=== PATIENT | male | born 1990 | race Caucasian/White ===

== ENCOUNTER 2020-01-03 16:50 | Inpatient (IN) | payer SELFPAY ==
[2020-01-03] MEDS ORDERED: Lactated Ringers 1,000 ML IV ONE ×2 (17:19→19:32)
[2020-01-03] MEDS ORDERED: Metoclopramide 10 MG/2 ML SDV IVPUSH ONE (17:20)
[2020-01-03] MEDS ORDERED: HYDROmorphone 0.5 MG/0.5 ML Syringe IVPUSH ONE ×2 (17:20→17:49)
--- NOTE | 2020-01-03 17:25 | EDM.PDOC ---
<Clinton Ledezma G - Last Filed: 01/03/20 17:49> ED HPI GENERAL MEDICAL PROBLEM - General Chief Complaint: Abdominal Pain Stated Complaint: RT SIDE ABD PAIN Time Seen by Provider: 01/03/20 17:10 Source of Information: Reports: Patient, RN History Limitations: Reports: No Limitations - History of Present Illness INITIAL COMMENTS - FREE TEXT/NARRATIVE: 29 yo male with no hx of prior abdominal surgeries presents with RLQ abdominal pain that has progressed since beginning early this morning. He has had no appetite and has not eaten. Anything he does makes the pain worse. He has nausea without vomiting. No change in his bowels. No fever. No urinary sx's. Onset: Today Onset Date: 01/03/20 Onset Time: 08:00 Duration: Hour(s):, Getting Worse Location: Reports: Abdomen (RLQ) Quality: Reports: Ache Severity: Moderate Improves with: Reports: None Worsens with: Reports: Other (pressing on area. ), Movement Context: Reports: Other (see HPI) Associated Symptoms: Reports: Loss of Appetite, Nausea/Vomiting (no vomiting). Denies: Cough, Fever/Chills Treatments MANAGER INTEL: Reports: Other (see below) (none) - Related Data Allergies Allergy/AdvReac Type Severity Reaction Status Date / Time No Known Allergies Allergy Verified 01/03/20 17:30 Home Meds: Home Meds NK [No Known Home Meds] 01/03/20 [History] Past Medical History - Past Health History Medical/Surgical History: Denies Medical/Surgical History Social & Family History - Tobacco Use Smoking Status *Q: Current Every Day Smoker Years of Tobacco use: 15 Packs/Tins Daily: 1 - Alcohol Use Days Per Week of Alcohol Use: 2 Number of Drinks Per Day: 1 Total Drinks Per Week: 2 - Recreational Drug Use Recreational Drug Use: No ED ROS GENERAL - Review of Systems Review Of Systems: See Below Constitutional: Reports: Decreased Appetite. Denies: Fever HEENT: Reports: No Symptoms Respiratory: Reports: No Symptoms Cardiovascular: Reports: No Symptoms GI/Abdominal: Reports: Abdominal Pain (RLQ), Anorexia, Decreased Appetite, Nausea. Denies: Black Stool, Bloody Stool, Constipation, Diarrhea, Distension, Flatus, Melena, Vomiting : Reports: No Symptoms Musculoskeletal: Reports: No Symptoms Skin: Reports: No Symptoms Neurological: Reports: No Symptoms Psychiatric: Reports: No Symptoms ED EXAM, GI/ABD - Physical Exam Exam: See Below Exam Limited By: No Limitations General Appearance: Alert, WD/WN, No Apparent Distress Eyes: Bilateral: Normal Appearance Ears: Normal External Exam, Normal Canal, Hearing Grossly Normal, Normal TMs Nose: Normal Inspection, No Blood Throat/Mouth: Normal Inspection, Normal Lips, Normal Oropharynx, Normal Voice, No Airway Compromise Head: Atraumatic, Normocephalic Neck: Normal Inspection Respiratory/Chest: No Respiratory Distress, Lungs Clear, Normal Breath Sounds, No Accessory Muscle Use Cardiovascular: Regular Rate, Rhythm, No Edema GI/Abdominal Exam: Soft, No Distention, Guarding, Tender (RLQ), Abnormal Bowel Sounds (decreased). No: Normal Bowel Sounds, Non-Tender, Distended, Rigid, Rebound Back Exam: Normal Inspection. No: CVA Tenderness (R), CVA Tenderness (L) Extremities: Normal Inspection, Normal Range of Motion, Non-Tender, No Pedal Edema Neurological: Alert, Oriented, CN II-XII Intact, Normal Cognition, No Motor/ Sensory Deficits Psychiatric: Normal Affect, Normal Mood Skin Exam: Warm, Dry, Intact, Normal Color, No Rash Course - Vital Signs Last Recorded V/S: Last Vital Signs Temp 97.5 F 01/03/20 18:26 Pulse 55 L 01/03/20 18:26 Resp 14 01/03/20 18:26 BP 136/71 01/03/20 18:26 Pulse Ox 95 01/03/20 18:26 - Orders/Labs/Meds Orders: Active Orders 24 hr Category Date Time Status Iopamidol [Isovue-300 (61%)] Med 01/03/20 18:00 Active 100 ml IV . DIRECTED PRN Lactated Ringers [Ringers, Lactated] 1,000 ml Med 01/03/20 19:32 Ordered IV BOLUS Sodium Chloride 0.9% [Normal Saline] 80 ml Med 01/03/20 18:00 Active IV ASDIRECTED Sodium Chloride 0.9% [Saline Flush] Med 01/03/20 18:00 Active 10 ml FLUSH ONETIME Medication Orders Sodium Chloride (Normal Saline) 80 mls @ 3.5 mls/sec IV ASDIRECTED SUSANNA Last Admin: 01/03/20 18:10 Dose: 3.5 mls/sec Lactated Ringer's (Ringers, Lactated) 1,000 mls @ 125 mls/hr IV BOLUS ONE Stop: 01/04/20 03:31 Iopamidol (Isovue-300 (61%)) 100 ml IV . DIRECTED PRN PRN Reason: RADIOLOGY EXAM Stop: 01/04/20 18:01 Last Admin: 01/03/20 18:10 Dose: 100 ml Sodium Chloride (Saline Flush) 10 ml FLUSH ONETIME SUSANNA Last Admin: 01/03/20 18:10 Dose: 10 ml Labs: Laboratory Tests 01/03/20 01/03/20 01/03/20 Range/Units 17:30 17:30 19:24 WBC 16.9 H (4.5-11.0) K/uL RBC 5.46 (4.30-5.90) M/uL Hgb 15.8 H (12.0-15.0) g/dL Hct 47.4 (40.0-54.0) % MCV 87 (80-98) fL MCH 29 (27-31) pg MCHC 33 (32-36) % Plt Count 297 (150-400) K/uL Sodium 138 L (140-148) mmol/L Potassium 4.5 (3.6-5.2) mmol/L Chloride 102 (100-108) mmol/L Carbon Dioxide 27 (21-32) mmol/L Anion Gap 13.5 (5.0-14.0) mmol/L BUN 15 (7-18) mg/dL Creatinine 1.2 (0.8-1.3) mg/dL Est Cr Clr Drug Dosing 97.90 mL/min Estimated GFR (MDRD) > 60 (>60) Glucose 107 H (74-106) mg/dL Calcium 9.2 (8.5-10.1) mg/dL Urine Color Yellow (YELLOW) Urine Appearance Clear (CLEAR) Urine pH 5.5 (5.0-8.0) Ur Specific [place] 1.015 (1.008-1.030) Urine Protein Negative (NEGATIVE) mg/dL Urine Glucose (UA) Negative (NEGATIVE) mg/dL Urine Ketones Negative (NEGATIVE) mg/dL Urine Occult Blood Negative (NEGATIVE) Urine Nitrite Negative (NEGATIVE) Urine Bilirubin Negative (NEGATIVE) Urine Urobilinogen 0.2 (0.2-1.0) EU/dL Ur Leukocyte Esterase Negative (NEGATIVE) Urine RBC 0-5 (0-5) Urine WBC 0-5 (0-5) Ur Epithelial Cells Not seen Amorphous Sediment Not seen Urine Bacteria Not seen Urine Mucus Not seen Meds: Medications Generic Name Dose Route Start Last Admin Trade Name Freq PRN Reason Stop Dose Admin Sodium Chloride 80 mls @ 3.5 mls/sec 01/03/20 18:00 01/03/20 18:10 Normal Saline IV 3.5 mls/sec ASDIRECTED SUSANNA Administration Lactated Ringer's 1,000 mls @ 125 mls/hr 01/03/20 19:32 Ringers, Lactated IV 01/04/20 03:31 BOLUS ONE Iopamidol 100 ml 01/03/20 18:00 01/03/20 18:10 Isovue-300 (61%) IV 01/04/20 18:01 100 ml . DIRECTED PRN Administration RADIOLOGY EXAM Sodium Chloride 10 ml 01/03/20 18:00 01/03/20 18:10 Saline Flush FLUSH 10 ml ONETIME SUSANNA Administration Discontinued Medications Generic Name Dose Route Start Last Admin Trade Name Oneilq PRN Reason Stop Dose Admin Hydromorphone HCl 0.5 mg 01/03/20 17:20 01/03/20 17:34 Dilaudid IVPUSH 01/03/20 17:21 0.5 mg ONETIME ONE Administration Hydromorphone HCl 0.5 mg 01/03/20 17:49 01/03/20 18:21 Dilaudid IVPUSH 01/03/20 17:50 0.5 mg ONETIME ONE Administration Lactated Ringer's 1,000 mls @ 500 mls/hr 01/03/20 17:19 01/03/20 17:34 Ringers, Lactated IV 01/03/20 19:18 500 mls/hr BOLUS ONE Administration Metoclopramide HCl 5 mg 01/03/20 17:20 01/03/20 17:39 Reglan IVPUSH 01/03/20 17:21 5 mg ONETIME ONE Administration Departure - Departure Disposition: Admitted As Inpatient 64 Clinical Impression: Appendicitis Qualifiers: Appendicitis type: acute appendicitis Acute appendicitis type: with localized peritonitis Appendicitis gangrene presence: without gangrene Appendicitis perforation presence: without perforation Appendicitis abscess presence: without abscess Qualified Code(s): K35.30 - Acute appendicitis with localized peritonitis, without perforation or gangrene - Discharge Information Instructions: Appendicitis, Adult Referrals: PCP,None [Primary Care Provider] - Forms: ED Department Discharge Sepsis Event Note - Evaluation Sepsis Screening Result: No Definite Risk - Focused Exam Vital Signs: Vital Signs Temp Pulse Resp BP Pulse Ox 01/03/20 18:26 97.5 F 55 L 14 136/71 95 01/03/20 17:47 53 L 14 136/78 100 01/03/20 17:16 96.4 F L 51 L 16 134/78 100 01/03/20 17:03 96.4 F L 51 L 16 134/78 100 Date Exam was Performed: 01/03/20 Time Exam was Performed: 17:49 - My Orders Last 24 Hours: My Active Orders 01/03/20 18:00 Iopamidol [Isovue-300 (61%)] 100 ml IV . DIRECTED PRN Sodium Chloride 0.9% [Normal Saline] 80 ml IV ASDIRECTED Sodium Chloride 0.9% [Saline Flush] 10 ml FLUSH ONETIME 01/03/20 19:32 Lactated Ringers [Ringers, Lactated] 1,000 ml IV BOLUS - Assessment/Plan Last 24 Hours: My Active Orders 01/03/20 18:00 Iopamidol [Isovue-300 (61%)] 100 ml IV . DIRECTED PRN Sodium Chloride 0.9% [Normal Saline] 80 ml IV ASDIRECTED Sodium Chloride 0.9% [Saline Flush] 10 ml FLUSH ONETIME 01/03/20 19:32 Lactated Ringers [Ringers, Lactated] 1,000 ml IV BOLUS <Nadeem Perkins - Last Filed: 01/03/20 19:38> Departure - Departure Time of Disposition: 19:37 Condition: Fair Sepsis Event Note - Focused Exam Date Exam was Performed: 01/03/20 Time Exam was Performed: 19:36 - Assessment/Plan Plan: Assessment Acuity = acute Site and laterality = appendicitis Etiology = unknown Manifestations = abdominal pain Location of injury = Home Lab values = WBC elevated 16.9 consistent leukocytosis, BMP unremarkable CT scan describes the acute appendicitis above Plan Call discussed case with Dr. Mcdonald at 1910 he kindly agreed to come evaluate the patient in the hospital plan for surgical intervention in the morning This note was dictated using Pegg'd voice recognition software please call with any questions on syntax or grammar.
[2020-01-03] MEDS ORDERED: Sodium Chloride 0.9% 80 ML IV SCH (18:00)
[2020-01-03] MEDS ORDERED: Iopamidol 612 MG/ML 100 ML Bottle IV PRN (18:00)
[2020-01-03] MEDS ORDERED: Sodium Chloride 0.9% 10 ML Syringe FLUSH SCH (18:00)
--- NOTE | 2020-01-03 19:09 | CRLCT ---
INDICATION: RLW ABDOMINAL PAIN WITH ELEVATED WBC CT, 100CC ISOVUE 300 USED HISTORY: Right lower quadrant abdominal pain. Elevated white blood cell count. COMPARISON: None. TECHNIQUE: CT of the abdomen and pelvis. 100 cc of Isovue-300 IV. Coronal/sagittal reconstruction images. FINDINGS: Lung bases: There is no pleural or pericardial effusion. The heart size is normal. There is bibasilar dependent atelectasis. There is no acute airspace disease or basilar pneumothorax. Abdomen/pelvis: The liver morphology is non cirrhotic. There is no perihepatic ascites. No inflammatory changes at the gallbladder. Mild dilation of intrahepatic biliary radicals. The spleen size is normal. There is no pancreatic mass or pancreatic duct dilation. No glandular atrophy. There is no hydronephrosis. There is no perinephric fluid collection. The nephrograms are symmetric. Urinary bladder is normal. The prostate is within normal limits. There is no evidence for a small bowel or colonic obstruction. There is no pneumatosis. There is no portal venous gas. The appendix is seen in the right lower quadrant. There is a appendicolith, which is seen on image 117, series 2. Distal to this appendicolith, the appendix is dilated, measuring up to 12 mm in dimension. Although there is no periappendiceal fat stranding, early acute appendicitis is suspected, an surgical consultation is advised. The appendix is of normal caliber adjacent to the cecum. There is questionable wall thickening of the appendix on image 116, series 2. There are nonenlarged lymph nodes present in the pelvis. There is no pelvic sidewall lymphadenopathy by size criteria. The retroperitoneum and gastrohepatic ligament are normal. There is no portal vein thrombosis. The splenic vein and SMV are patent. The bone windows demonstrate no lytic or blastic bone lesions. The alignment is preserved. The vertebral body heights are maintained on sagittal reconstruction images. IMPRESSION: 1. The appendix is focally dilated near its tip, with an associated intraluminal appendicolith. 2. Although there is a paucity of periappendiceal fat stranding, early acute appendicitis should be considered given the history of leukocytosis and right lower quadrant abdominal pain. 3. There is no drainable fluid collection or extraluminal gas. 4. Surgical consultation is suggested for this finding. 5. Case reviewed with Officer of the emergency department, 01/03/2020, 1907 hours. Dictated by Jeff Diamond MD @ 01/03/2020 7:09:00 PM Please note that all CT scans at this facility use dose modulation, iterative reconstruction, and/or weight-based dosing when appropriate to reduce radiation dose to as low as reasonably achievable. Dictated by: Jeff Diamond MD @ 01/03/2020 19:09:09 (Electronically Signed)
[2020-01-03] MEDS ORDERED: Ondansetron 4 MG/2 ML SDV IV PRN (19:39)
[2020-01-03] MEDS ORDERED: Nicotine 14 MG/24 Hr Patch TRDERM SCH (20:00)
[2020-01-03] MEDS: Ampicillin/Sulbactam Na 3 GM in Sodium Chloride 0.9% 100 ML IV SCH (20:37)
[2020-01-03] MEDS: HYDROmorphone 0.5 MG/0.5 ML Syringe IVPUSH PRN ×2 (21:34→23:55)
[2020-01-04] MEDS: HYDROmorphone 0.5 MG/0.5 ML Syringe IVPUSH PRN ×2 (01:51→05:44)
[2020-01-04] MEDS: Ampicillin/Sulbactam Na 3 GM in Sodium Chloride 0.9% 100 ML IV SCH ×4 (01:51→19:32)
[2020-01-04] MEDS ORDERED: Lactated Ringers 1,000 ML IV SCH (03:45)
[2020-01-04] MEDS ORDERED: Lidocaine 1% with EPINEPHrine 1:100,000 50 ML MDV ONE (05:05)
[2020-01-04] MEDS ORDERED: Bupivacaine 0.5% 50 ML MDV ONE (05:05)
[2020-01-04] MEDS ORDERED: Succinylcholine 200 MG/10 ML MDV ONE (05:47)
[2020-01-04] MEDS ORDERED: fentaNYL 250 MCG/5 ML SDV ONE ×2 (05:47→06:06)
[2020-01-04] MEDS ORDERED: Ondansetron 4 MG/2 ML SDV ONE (05:47)
[2020-01-04] MEDS ORDERED: Neostigmine Methylsulfate 1 MG/ML 5 ML Syringe ONE (05:47)
[2020-01-04] MEDS ORDERED: Propofol 200 MG/20 ML SDV ONE (05:47)
[2020-01-04] MEDS ORDERED: Glycopyrrolate 0.2 MG/ML 5 ML MDV ONE (05:47)
[2020-01-04] MEDS ORDERED: Rocuronium 50 MG/5 ML Vial ONE (05:47)
[2020-01-04] MEDS ORDERED: Dexamethasone 4 MG/ML SDV ONE ×3 (05:47→06:25)
[2020-01-04] MEDS ORDERED: Sodium Chloride 0.9% 30 ML ONE (06:20)
[2020-01-04] MEDS ORDERED: cefOXitin 2 GM Vial ONE (06:21)
[2020-01-04] MEDS ORDERED: EPINEPHrine 1 MG/ML SDV ONE ×2 (06:24→06:26)
[2020-01-04] MEDS ORDERED: Ropivacaine 0.5% 5 MG/ML 30 ML SDV ONE (06:24)
[2020-01-04] MEDS ORDERED: Sodium Chloride 0.9% 20 ML ONE (06:31)
[2020-01-04] MEDS ORDERED: hydrOXYzine HCL 100 MG/2 ML SDV IM ONE (07:18)
[2020-01-04] MEDS: Dextrose 5%-Lactated Ringers 1,000 ML IV SCH ×3 (08:00→22:42)
[2020-01-04] MEDS ORDERED: HYDROmorphone 0.5 MG/0.5 ML Syringe IVPUSH PRN (08:21)
[2020-01-04] MEDS ORDERED: HYDROmorphone 1 MG/ML Syringe IV PRN (08:21)
[2020-01-04] MEDS: oxyCODONE 5 MG Tab PO PRN ×3 (09:28→21:20)
[2020-01-04] MEDS: Acetaminophen 500 MG Tab PO SCH ×3 (09:29→21:20)
[2020-01-04] MEDS: Nicotine 21 MG/24 Hr Patch TRDERM SCH (13:59)
[2020-01-04] MEDS ORDERED: Nicotine 14 MG/24 Hr Patch TRDERM SCH (21:00)
[2020-01-05] MEDS: oxyCODONE 5 MG Tab PO PRN ×2 (00:51→05:54)
[2020-01-05] MEDS: Ampicillin/Sulbactam Na 3 GM in Sodium Chloride 0.9% 100 ML IV SCH ×2 (01:11→07:32)
[2020-01-05] MEDS: Acetaminophen 500 MG Tab PO SCH ×2 (04:36→09:11)
[2020-01-05] MEDS: Dextrose 5%-Lactated Ringers 1,000 ML IV SCH (05:55)
--- NOTE | 2020-01-05 08:07 | DISCH ---
ADMISSION DIAGNOSIS: Acute appendicitis. DISCHARGE DIAGNOSES: 1. Diagnostic laparoscopy with appendectomy and drainage. 2. Repair of appendiceal abscess for perforated appendix and periappendiceal abscess. DATE OF SURGERY: 01/04/2020. SURGEON: Jude Mcdonald MD. HISTORY: Jerry is a 29-year-old male who presented to the emergency room on , with right lower quadrant abdominal pain for 12 hours. After preoperative evaluation and discussion of possible risks and possible complications, he wished to proceed with surgical procedure. HOSPITAL COURSE: Jerry had his surgery after confirmation from a CT on 2019. He had no operative complications. On postoperative day 1, his oral intake was adequate. He was up ambulating independently. Pain was controlled, and he was able to be discharged to home with no complications. PHYSICAL EXAMINATION: GENERAL: Jerry Proras is a pleasant 29-year-old male. VITAL SIGNS: Height is 6 feet 2 inches. Weight is 181 pounds. TPR at 0200 is 96.6, 71, 18, and blood pressure 110/56. HEENT: Negative. NECK: Supple. HEART: Regular rate and rhythm. LUNGS: Clear. ABDOMEN: Dressing is dry and intact. Abdominal binder is on. EXTREMITIES: Without peripheral edema. DISPOSITION: Discharged to home. CONDITION: Stable and improving. FOLLOWUP: Appointment with Jude Mcdonald MD, at [facility] at 01/11/2020 at 9 a.m. HOME MEDICATIONS: Tylenol 1000 mg every 6 hours p.r.n. pain, 2; oxycodone 5 mg oral 1 q.6 hours p.r.n. severe pain, #28; and milk of magnesia 30 mL to take 1 daily as needed for constipation 2 were sent home with the patient. DIET: Usual diet as tolerated. Drink 8 to 10 glasses of water a day. ACTIVITY: As tolerated. No lifting greater than 10 pounds for 2 weeks. Driving: Do not drive for 1 week and within 6 hours of taking oxycodone. Shower/bathing: May shower. DISCHARGE INSTRUCTIONS: Notify provider if any fever, increased pain, swelling , redness, drainage, nausea, or vomiting. Wound incision care: Keep site clean and dry. Wear abdominal binder for 2 weeks and then as tolerated. SPECIAL INSTRUCTION: Use incentive spirometer 10 times every hour while awake. [facility]
[2020-01-05] MEDS ORDERED: Magnesium Hydroxide 400 MG/5 ML Susp 30 ML Cup PO PRN (08:24)
[2020-01-05] MEDS: Nicotine 21 MG/24 Hr Patch TRDERM SCH (09:11)
--- NOTE | 2020-01-08 10:01 | OR ---
DATE OF PROCEDURE: 01/04/2020 SURGEON: Jude Mcdonald MD PREOPERATIVE DIAGNOSIS: Acute appendicitis. POSTOPERATIVE DIAGNOSIS: Perforated appendicitis with periappendiceal abscess. OPERATIVE PROCEDURES: Diagnostic laparoscopy with appendectomy and drainage of periappendiceal abscess (33110). ANESTHESIA: General. INDICATIONS FOR PROCEDURE: This is a 29-year-old male presenting with a picture of acute appendicitis both clinically and radiologically. Plan is to proceed with diagnostic laparoscopy, laparotomy if necessary, and probable appendectomy. The potential need for additional procedures beyond an appendectomy were reviewed. Otherwise, potential risks including bleeding, infection, leaks from GI tract closures, and possibility of cardiopulmonary, septic, or hemorrhagic complications leading to were discussed, and the patient wishes to proceed. DETAILS OF PROCEDURE: The patient was taken to the operating room, placed in a supine position. After general endotracheal anesthesia was induced, a Mccarty catheter was inserted, and the abdomen prepped and draped. In the area 2 cm superior and 3 cm to the left of the umbilicus, a transverse incision was made and the peritoneal cavity entered under direct vision with an Optiview trocar, inflated to 15 mmHg pressure with CO2. Laparoscope was then reinserted. No underlying trocar insertion site injuries were seen. Following this, 12 mm trocars were placed in the left lower quadrant and right upper quadrant and the area around the cecum examined. The patient had an obvious appendicitis. There appeared to be an area of focal perforation and roughly a tablespoon of purulent fluid collection. Cultures of this were obtained and the periappendiceal abscess evacuated. Appendix was then freed up at the junction of the appendix and underlying cecum from its mesentery and divided there with LEIGHTON perdomo load. The proximal phalanx was minimally inflamed. The mesoappendix was then divided with Harmonic scalpel and the specimen placed into a specimen retrieval bag and taken out through the left lower quadrant trocar site. At that point, no further problems were noted. The staple line appeared to be intact and there was no bleeding. The evacuation of the purulence appeared to be satisfactory enough that we would not need to place a drain. Given this, the trocars were sequentially removed and the fascia closed with 0 Vicryl stitch and the skin with 4-0 Vicryl skin stitch. Prior to conclusion of the procedure, bilateral transversus abdominis plane blocks were placed and the incision was also anesthetized with some 0.5% Marcaine. The patient was taken to the recovery room in satisfactory condition. There were no evident complications. Jude Mcdonald MD /[id number]
== END 2020-01-05 09:35 | disposition home or self-care (01) | DRG 340 ==
LOC: JP.ED 16:50 → JP.MS 19:39 → OBSVTOIN 01-04 06:50
PROVIDERS: ADMIT Surgery; ATTEND Surgery
PROC: 0DTJ4ZZ Resection of Appendix, Percutaneous Endoscopic Approach (ICD-10-PCS; principal; 2020-01-04)
DX: K35.33 Acute appendicitis with perforation, localized peritonitis, and gangrene, with abscess (principal); F17.210 Nicotine dependence, cigarettes, uncomplicated
CPT/HCPCS: 36415; 74177; 80048; 81001; 85027; 87070; 87075; 87205; 88304; 94762; 96361; 96365; 96366; 96374; 96375; 96376; 99284; 99285-25; A9270-GY; G0378; J0171; J0295; J0330; J0694; J1100; J1170; J2405; J2704; J2710; J2765; J2795; J3010; J3410; J3490; J7050; J7120; J7121; Q9967

== ENCOUNTER 2025-06-11 11:44 | Emergency (ER) | payer BC, OTHER ==
[2025-06-11] MEDS: Diphtheria,Pertussis(Acell),Tetanus Vaccine 0.5 ML Syringe IM ONE (12:30)
== END 2025-06-11 14:43 | disposition home or self-care (01) ==
LOC: JP.ED 11:44
DX: S61.213A Laceration without foreign body of left middle finger without damage to nail, initial encounter (principal); F17.210 Nicotine dependence, cigarettes, uncomplicated; Z90.49 Acquired absence of other specified parts of digestive tract; Z23 Encounter for immunization; W26.8XXA Contact with other sharp object(s), not elsewhere classified, initial encounter
CPT/HCPCS: 12002; 90471; 90715; 99282; J2003